=== PATIENT | female | born 2000 | race Caucasian/White ===

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

== ENCOUNTER → 2020-07-08 | Outpatient (CLI) | payer OTHER ==
[~2020-07-08] MED LIST changes: +CIPRO500 MG PO
== END | disposition home or self-care (01) ==
LOC: COVID19 09:21
PROVIDERS: ATTEND Family Medicine
DX: Z20.828 Contact with and (suspected) exposure to other viral communicable diseases (principal)

== ENCOUNTER 2023-06-07 13:33 | Emergency (ER) | payer SELFPAY ==
[~2023-06-07] VITALS: Ht 154.9 cm; Wt 56.7 kg
[2023-06-07] MEDS ORDERED: AMOX-CLAV 875-1 EACH PO (14:23)
== END 2023-06-07 14:57 | disposition home or self-care (01) ==
LOC: ED 13:33
DX: S61.411A Laceration without foreign body of right hand, initial encounter (principal); W26.8XXA Contact with other sharp object(s), not elsewhere classified, initial encounter; Y93.89 Activity, other specified; Y92.89 Other specified places as the place of occurrence of the external cause; Y99.8 Other external cause status